=== PATIENT | male | born 1955 | race Hispanic/Latino ===

== ENCOUNTER 2025-07-10 15:57 | Inpatient (IN) | payer OTHER ==
[~2025-07-10 15:57] MED LIST: Iopamidol 300 61% 100 ML VIAL FS ONE
[2025-07-10 18:17] LABS: #Basophils Less than 0.03 10x3/uL (0.0-0.2); #Eosinophils Less than 0.03 10x3/uL (0.0-0.5); #Monocytes 0.20 10x3/uL (0.0-1.1); #Neutrophils 1.15 10x3/uL (1.5-8.4); %Basophils 1.0 % (0.0-2.0); %Eosinophils 1.0 % (0.0-6.0); %Lymphocytes 29.4 % (18.0-47.0); %Monocytes 10.0 % (0.0-10.0); %Neutrophils 57.1 % (40.0-75.0); Hematocrit 22.5 % (38.8-50.0); Hemoglobin 7.0 g/dL (13.5-17.5); Mean Corpuscular Hemoglobin 22.4 pg (27.0-33.0); Mean Corpuscular Volume 71.9 fL (81.2-95.1); Platelet Count 55 10x3/uL (150-450); Red Blood Cell (RBC) Count 3.13 10x6/uL (4.32-5.72); White Blood Cell (WBC) Count 2.01 10x3/uL (3.5-10.5)
[2025-07-10 18:30] LABS: ALT (SGPT) 24 U/L (Less than 45); AST (SGOT) 28 U/L (11-34); Albumin 2.8 g/dL (3.1-4.5); Alkaline Phosphatase 112 U/L (40-110); Anion Gap 10 mmol/L (10-20); BUN (Urea Nitrogen) 22 mg/dL (8.4-25.7); Bilirubin, Total 1.0 mg/dL (0.3-1.2); Calc. Creatinine Clearance 0 mL/min (70-130); Calcium 8.3 mg/dL (7.8-10.44); Carbon Dioxide 23 mmol/L (23-31); Chloride 110 mmol/L (98-107); Globulin 3.0 g/dL (2.4-3.5); Glucose 112 mg/dL (80-115); Potassium 4.0 mmol/L (3.5-5.1); Sodium 139 mmol/L (136-145)
[2025-07-10 18:54] LABS: MDiff Complete? YES; Microcytosis SLIGHT = 6-15 cells (100X) (0-5/hpf); Platelet Adequacy Comment Appears Decreased
[2025-07-10 19:58] LABS: INR-International Normal Ratio 1.4; PTT 32.3 sec (22.0-33.0); Prothrombin Time 14.5 sec (9.5-12.1)
[2025-07-10 20:01] LABS: Acetaminophen Less than 10 mcg/mL (Less than 10); Lipase 47 U/L (8-78); Magnesium 2.3 mg/dL (1.6-2.6); Salicylate Less than 8.0 mg/dL (Less than 8.0)
[2025-07-10 20:45] LABS: Cocaine Metabolite Screen Negative (Negative); THC/Cannabinoid Screen Negative (Negative); Tricyclic Screen Negative (Negative)
[2025-07-10 20:47] LABS: Glucose, Urine (Dipstick) Normal (Negative); Leukocyte Negative (Negative); Protein, Urine (Dipstick) 30 mg/dl (Neg-Trace); Specific Gravity, Urine 1.025 (1.005-1.030)
[2025-07-10 20:55] LABS: Bacteria/HPF None Seen HPF (None Seen); CAUTI Indications for Culture Dysuria,urgency,freq; Mucous/LPF 3+ LPF (<2+); RBC/HPF None Seen HPF (0-3)
[2025-07-10 20:56] LABS: WBC/HPF 0-3 HPF (0-3)
[2025-07-10 20:57] LABS: Urine Culture Reflex No No
[2025-07-10] MEDS ORDERED: cefTRIAXone (ROCEPHIN) 2 GM VIAL ONE (22:22)
[2025-07-10] MEDS ORDERED: Pantoprazole 40 MG VIAL ONE (22:23)
[2025-07-10] MEDS ORDERED: Lidocaine 1% (PF) 30 ML VIAL ONE (22:50)
[2025-07-10] MEDS ORDERED: Octreotide Acetate 1,250 MCG in Sodium Chloride 0.9% 250 ML 250 ML IVPB SCH (23:00)
[2025-07-10 23:17] LABS: Hep A IgM AB NONREACTIVE (NonReactive); Hep B Core IgM Index 0.19 S/CO (0-0.79); Hep B Surf Ag NONREACTIVE S/CO (NonReactive); Hep C IgG Ab NONREACTIVE S/CO (NonReactive); Hep C Index 0.13 S/CO (0-0.79)
[2025-07-10 23:23] LABS: Hep A IgM S/CO 0.37 S/CO (0-0.79)
[2025-07-11 00:28] LABS: Hematocrit 21.6 % (38.8-50.0); Hemoglobin 6.6 g/dL (13.5-17.5)
[2025-07-11 01:01] LABS: BF Segmented Neutrophils 1 %; Cell Count Non Hematic 86 %
[2025-07-11] MEDS: Octreotide Acetate 1,250 MCG in Sodium Chloride 0.9% 250 ML 250 ML IVPB SCH ×2 (01:33→22:24)
[2025-07-11] MEDS: Pantoprazole 80 MG, Admixture Fee 1 EACH in Sodium Chloride 0.9% 100 ML IVPB SCH (01:33)
[2025-07-11 01:37] VITALS: BMI 27.3
[2025-07-11] MEDS: Ondansetron PF 4 MG/2 ML Vial IVP PRN (04:05)
[2025-07-11 06:55] LABS: Platelet Count 51 10x3/uL (150-450)
[2025-07-11 06:56] LABS: Hematocrit 25.8 % (38.8-50.0); Hemoglobin 8.0 g/dL (13.5-17.5); Mean Corpuscular Hemoglobin 23.5 pg (27.0-33.0); Mean Corpuscular Volume 75.9 fL (81.2-95.1); Red Blood Cell (RBC) Count 3.40 10x6/uL (4.32-5.72); White Blood Cell (WBC) Count 1.84 10x3/uL (3.5-10.5)
[2025-07-11 07:02] LABS: Magnesium 2.2 mg/dL (1.6-2.6)
[2025-07-11 07:07] LABS: ALT (SGPT) 22 U/L (Less than 45); AST (SGOT) 23 U/L (11-34); Albumin 3.2 g/dL (3.1-4.5); Alkaline Phosphatase 112 U/L (40-110); Anion Gap 11 mmol/L (10-20); BUN (Urea Nitrogen) 21 mg/dL (8.4-25.7); Bilirubin, Total 2.0 mg/dL (0.3-1.2); Calc. Creatinine Clearance 72 mL/min (70-130); Calcium 8.3 mg/dL (7.8-10.44); Carbon Dioxide 21 mmol/L (23-31); Chloride 111 mmol/L (98-107); Globulin 2.7 g/dL (2.4-3.5); Glucose 97 mg/dL (80-115); Potassium 4.1 mmol/L (3.5-5.1); Sodium 139 mmol/L (136-145)
[2025-07-11 07:13] LABS: MDiff Complete? YES; Microcytosis SLIGHT = 6-15 cells (100X) (0-5/hpf); Platelet Adequacy Comment Appears Decreased
[2025-07-11] MEDS: Pantoprazole 80 MG, Admixture Fee 1 EACH in Sodium Chloride 0.9% 100 ML IVP SCH (08:35)
[2025-07-11] MEDS: cefTRIAXone\\ROCEPHIN 1 GM in Sodium Chloride 0.9% 100 ML IVPB SCH (17:40)
[2025-07-12 06:44] LABS: #Basophils Less than 0.03 10x3/uL (0.0-0.2); #Eosinophils Less than 0.03 10x3/uL (0.0-0.5); #Monocytes 0.09 10x3/uL (0.0-1.1); #Neutrophils 1.71 10x3/uL (1.5-8.4); %Basophils 0.0 % (0.0-2.0); %Eosinophils 0.0 % (0.0-6.0); %Lymphocytes 19.6 % (18.0-47.0); %Monocytes 4.0 % (0.0-10.0); %Neutrophils 76.0 % (40.0-75.0); Hematocrit 27.3 % (38.8-50.0); Hemoglobin 8.6 g/dL (13.5-17.5); Mean Corpuscular Hemoglobin 23.4 pg (27.0-33.0); Mean Corpuscular Volume 74.2 fL (81.2-95.1); Platelet Count 62 10x3/uL (150-450); Red Blood Cell (RBC) Count 3.68 10x6/uL (4.32-5.72); White Blood Cell (WBC) Count 2.25 10x3/uL (3.5-10.5)
[2025-07-12 06:54] LABS: ALT (SGPT) 18 U/L (Less than 45); AST (SGOT) 15 U/L (11-34); Albumin 3.1 g/dL (3.1-4.5); Alkaline Phosphatase 98 U/L (40-110); Anion Gap 11 mmol/L (10-20); BUN (Urea Nitrogen) 19 mg/dL (8.4-25.7); Bilirubin, Total 1.4 mg/dL (0.3-1.2); Calc. Creatinine Clearance 73 mL/min (70-130); Calcium 8.0 mg/dL (7.8-10.44); Carbon Dioxide 21 mmol/L (23-31); Chloride 113 mmol/L (98-107); Globulin 2.6 g/dL (2.4-3.5); Glucose 125 mg/dL (80-115); Potassium 4.0 mmol/L (3.5-5.1); Sodium 141 mmol/L (136-145)
[2025-07-13 05:19] LABS: Hematocrit 23.6 % (38.8-50.0); Hemoglobin 7.4 g/dL (13.5-17.5); Mean Corpuscular Hemoglobin 23.2 pg (27.0-33.0); Mean Corpuscular Volume 74.0 fL (81.2-95.1); Platelet Count 59 10x3/uL (150-450); Red Blood Cell (RBC) Count 3.19 10x6/uL (4.32-5.72); White Blood Cell (WBC) Count 2.22 10x3/uL (3.5-10.5)
[2025-07-13 05:20] LABS: #Basophils Less than 0.03 10x3/uL (0.0-0.2); #Eosinophils 0.03 10x3/uL (0.0-0.5); #Monocytes 0.15 10x3/uL (0.0-1.1); #Neutrophils 1.32 10x3/uL (1.5-8.4); %Basophils 0.9 % (0.0-2.0); %Eosinophils 1.4 % (0.0-6.0); %Lymphocytes 31.5 % (18.0-47.0); %Monocytes 6.8 % (0.0-10.0); %Neutrophils 59.4 % (40.0-75.0)
[2025-07-13 05:22] LABS: INR-International Normal Ratio 1.5; Prothrombin Time 16.1 sec (9.5-12.1)
[2025-07-13 05:25] LABS: MDiff Complete? YES; Platelet Adequacy Comment Appears Decreased
[2025-07-13 05:29] LABS: ALT (SGPT) 13 U/L (Less than 45); AST (SGOT) 14 U/L (11-34); Albumin 2.6 g/dL (3.1-4.5); Alkaline Phosphatase 74 U/L (40-110); Anion Gap 8 mmol/L (10-20); BUN (Urea Nitrogen) 20 mg/dL (8.4-25.7); Bilirubin, Total 1.0 mg/dL (0.3-1.2); Calc. Creatinine Clearance 82 mL/min (70-130); Calcium 7.0 mg/dL (7.8-10.44); Carbon Dioxide 21 mmol/L (23-31); Chloride 115 mmol/L (98-107); Globulin 2.2 g/dL (2.4-3.5); Glucose 94 mg/dL (80-115); Iron 16 ug/dL (65-175); Iron Binding Capacity, Total 228 mcg/dL (261-462); Potassium 3.7 mmol/L (3.5-5.1); Sodium 140 mmol/L (136-145)
[2025-07-13 05:46] LABS: Ferritin 16.99 ng/mL (22-322)
[2025-07-13] MEDS ORDERED: PROPOFOL 20 ML ONE (13:33)
[2025-07-13 18:09] LABS: HBSAB Concentration Less than 8.00 mIU/mL
[2025-07-13] MEDS: Pantoprazole 40 MG VIAL IVP SCH (21:43)
[2025-07-14 04:52] LABS: Hematocrit 26.4 % (38.8-50.0); Hemoglobin 8.2 g/dL (13.5-17.5); Mean Corpuscular Hemoglobin 23.0 pg (27.0-33.0); Mean Corpuscular Volume 73.9 fL (81.2-95.1); Platelet Count 53 10x3/uL (150-450); Red Blood Cell (RBC) Count 3.57 10x6/uL (4.32-5.72); White Blood Cell (WBC) Count 2.01 10x3/uL (3.5-10.5)
[2025-07-14 04:53] LABS: #Basophils Less than 0.03 10x3/uL (0.0-0.2); #Eosinophils Less than 0.03 10x3/uL (0.0-0.5); #Monocytes 0.19 10x3/uL (0.0-1.1); #Neutrophils 1.17 10x3/uL (1.5-8.4); %Basophils 0.5 % (0.0-2.0); %Eosinophils 1.0 % (0.0-6.0); %Lymphocytes 30.3 % (18.0-47.0); %Monocytes 9.5 % (0.0-10.0); %Neutrophils 58.2 % (40.0-75.0); ALT (SGPT) 14 U/L (Less than 45); AST (SGOT) 13 U/L (11-34); Albumin 2.8 g/dL (3.1-4.5); Alkaline Phosphatase 85 U/L (40-110); Anion Gap 12 mmol/L (10-20); BUN (Urea Nitrogen) 22 mg/dL (8.4-25.7); Bilirubin, Total 1.2 mg/dL (0.3-1.2); Calc. Creatinine Clearance 74 mL/min (70-130); Calcium 7.8 mg/dL (7.8-10.44); Carbon Dioxide 21 mmol/L (23-31); Chloride 111 mmol/L (98-107); Globulin 2.6 g/dL (2.4-3.5); Glucose 86 mg/dL (80-115); Potassium 4.0 mmol/L (3.5-5.1); Sodium 140 mmol/L (136-145)
[2025-07-14 05:14] LABS: Hepatitis A Total ABS Positive (Negative)
[2025-07-14 14:24] VITALS: BMI 27.3
[2025-07-15 04:09] LABS: Platelet Count 70 10x3/uL (150-450)
[2025-07-15 04:10] LABS: #Basophils 0.03 10x3/uL (0.0-0.2); #Eosinophils 0.08 10x3/uL (0.0-0.5); #Monocytes 0.28 10x3/uL (0.0-1.1); #Neutrophils 2.35 10x3/uL (1.5-8.4); %Basophils 0.8 % (0.0-2.0); %Eosinophils 2.2 % (0.0-6.0); %Lymphocytes 24.0 % (18.0-47.0); %Monocytes 7.7 % (0.0-10.0); %Neutrophils 65.0 % (40.0-75.0); Hematocrit 28.9 % (38.8-50.0); Hemoglobin 9.0 g/dL (13.5-17.5); Mean Corpuscular Hemoglobin 23.3 pg (27.0-33.0); Mean Corpuscular Volume 74.7 fL (81.2-95.1); Red Blood Cell (RBC) Count 3.87 10x6/uL (4.32-5.72); White Blood Cell (WBC) Count 3.62 10x3/uL (3.5-10.5)
[2025-07-15 04:19] LABS: ALT (SGPT) 12 U/L (Less than 45); AST (SGOT) 13 U/L (11-34); Albumin 3.1 g/dL (3.1-4.5); Alkaline Phosphatase 83 U/L (40-110); Anion Gap 12 mmol/L (10-20); BUN (Urea Nitrogen) 21 mg/dL (8.4-25.7); Bilirubin, Total 1.3 mg/dL (0.3-1.2); Calc. Creatinine Clearance 74 mL/min (70-130); Calcium 7.9 mg/dL (7.8-10.44); Carbon Dioxide 21 mmol/L (23-31); Chloride 110 mmol/L (98-107); Globulin 2.6 g/dL (2.4-3.5); Glucose 103 mg/dL (80-115); Potassium 3.6 mmol/L (3.5-5.1); Sodium 139 mmol/L (136-145)
[2025-07-15] MEDS: Spironolactone 25 MG TAB PO SCH (10:55)
[2025-07-15] MEDS: Furosemide 20 MG (2 mL) VIAL SLOW IVP SCH (10:55)
[2025-07-15 12:38] LABS: Smooth Muscle Total ABS 7 Units (0-19)
[2025-07-16 04:25] LABS: INR-International Normal Ratio 1.6; Prothrombin Time 16.6 sec (9.5-12.1)
[2025-07-16 04:29] LABS: ALT (SGPT) 11 U/L (Less than 45); AST (SGOT) 13 U/L (11-34); Albumin 2.8 g/dL (3.1-4.5); Alkaline Phosphatase 79 U/L (40-110); Anion Gap 13 mmol/L (10-20); BUN (Urea Nitrogen) 20 mg/dL (8.4-25.7); Bilirubin, Total 1.1 mg/dL (0.3-1.2); Calc. Creatinine Clearance 76 mL/min (70-130); Calcium 7.8 mg/dL (7.8-10.44); Carbon Dioxide 21 mmol/L (23-31); Chloride 109 mmol/L (98-107); Globulin 2.6 g/dL (2.4-3.5); Glucose 111 mg/dL (80-115); Potassium 3.9 mmol/L (3.5-5.1); Sodium 139 mmol/L (136-145)
[2025-07-16] MEDS: Senokot S 8.6-50 MG TAB PO PRN (17:14)
[2025-07-17 04:01] LABS: INR-International Normal Ratio 1.6; Prothrombin Time 16.9 sec (9.5-12.1)
[2025-07-17] MEDS: Furosemide 40 MG TAB PO SCH (09:55)
[2025-07-17] MEDS: Pantoprazole 40 MG DR.TAB PO SCH (09:55)
[2025-07-17 12:00] LABS: ANA Symphony (Qualitative) Negative (Negative); ANA Symphony (Quantitative) 0.3 Ratio (< 0.7 Negative); EliA Vaculitis New Method **** NEW METHOD ****; Mitochondrial Ab 0.7 U/mL (<4 Negative); dsDNA IgG Antibody Less than 0.6 IU/mL (<10 Negative)
[2025-07-17] MEDS ORDERED: Sodium Bicarbonate 2.5 MEQ/5 ML SDV ONE (13:58)
[2025-07-18 05:24] LABS: INR-International Normal Ratio 1.7; Prothrombin Time 17.3 sec (9.5-12.1)
[2025-07-18 06:06] VITALS: TEMP 98.8
[2025-07-18] MEDS: Furosemide 40 MG TAB PO SCH (09:28)
[2025-07-18 12:21] VITALS: BP 126/56
== END 2025-07-18 16:18 | disposition home or self-care (01) | DRG 432 ==
LOC: CSHERS 15:57 → CSHTELE 07-11 00:30
PROVIDERS: ADMIT Family Medicine; ATTEND Internal Medicine
PROC: 0W9G3ZX Drainage of Peritoneal Cavity, Percutaneous Approach, Diagnostic (ICD-10-PCS; principal; 2025-07-10)
PROC: 3E03329 Introduction of Other Anti-infective into Peripheral Vein, Percutaneous Approach (ICD-10-PCS; 2025-07-11)
PROC: 30233N1 Transfusion of Nonautologous Red Blood Cells into Peripheral Vein, Percutaneous Approach (ICD-10-PCS; 2025-07-11)
PROC: 06L38CZ Occlusion of Esophageal Vein with Extraluminal Device, Via Natural or Artificial Opening Endoscopic (ICD-10-PCS; 2025-07-13)
DX: K74.60 Unspecified cirrhosis of liver (principal); I85.01 Esophageal varices with bleeding; D62 Acute posthemorrhagic anemia; K92.2 Gastrointestinal hemorrhage, unspecified; R18.8 Other ascites; K76.6 Portal hypertension; K72.90 Hepatic failure, unspecified without coma; D69.6 Thrombocytopenia, unspecified; E11.9 Type 2 diabetes mellitus without complications; I10 Essential (primary) hypertension; E78.5 Hyperlipidemia, unspecified; N40.0 Benign prostatic hyperplasia without lower urinary tract symptoms; Z79.899 Other long term (current) drug therapy; Z98.890 Other specified postprocedural states; K31.89 Other diseases of stomach and duodenum; D64.9 Anemia, unspecified; K59.00 Constipation, unspecified
CPT/HCPCS: 36415; 36416; 36430; 49083; 74177; 76705; 80053; 80074; 80306; 80307; 81001; 82042; 82103; 82105; 82140; 82274; 82728; 82945; 83516; 83540; 83550; 83605; 83690; 83735; 83880; 84157; 84443; 85014; 85018; 85025; 85610; 85730; 86015; 86038; 86225; 86706; 86708; 86850; 86900; 86901; 87070; 87205; 89051; 93005; 96374; 96375; 96376; J0696; J1940; J2003; J2354; J2405; J2470; J2704; J7030; J7050; P9016; Q9967